=== PATIENT | male | born 1970 | race African-American/Black ===

== ENCOUNTER 2021-02-11 20:40 | Emergency (ER) | payer OTHER ==
[2021-02-11 20:49] VITALS: BP 158/97; PULSE 75; TEMP 98.4; BMI 27.7
[2021-02-11] MEDS ORDERED: ASPIRIN 81 MG CHEWABLE TABLETS ONE (22:34)
[2021-02-12 00:09] LABS: CHLORIDE 102 mmol/L (98-107); SODIUM 137 mmol/L (136-145)
[2021-02-12 00:10] LABS: CALCIUM 8.8 mg/dL (8.5-10.1)
[2021-02-12 00:12] LABS: ALBUMIN 3.5 g/dl (3.4-5.0); ANION GAP 7 MMOL/L (8-16); CO2 29 mmol/L (21-32); GLUCOSE,RANDOM 101 mg/dL (74-106)
[2021-02-12 00:14] LABS: CREATININE 0.9 mg/dL (0.55-1.3); SGOT/AST 18 U/L (15-37); SGPT/ALT 22 U/L (13-61)
[2021-02-12 00:15] LABS: BILIRUBIN,TOTAL 0.4 mg/dL (0.2-1); TOT PROT 7.2 g/dl (6.4-8.2)
[2021-02-12 00:18] LABS: ALK PHOS 83 U/L (45-117)
[2021-02-12 01:05] LABS: HIV INTERPRETATION NEGATIVE (NEGATIVE)
[2021-02-12] MEDS ORDERED: ASPIRIN 81 MG CHEWABLE TABLETS PO ONE ×2 (22:00)
== END 2021-02-12 00:07 | disposition home or self-care (01) ==
LOC: JER 20:40
DX: M25.511 Pain in right shoulder (principal); Z91.19 Patient's noncompliance with other medical treatment and regimen; W01.0XXA Fall on same level from slipping, tripping and stumbling without subsequent striking against object, initial encounter
CPT/HCPCS: 71045-TC-FY; 73030-TC-LT-FY; 73060-TC-LT-FY; 80053; 82550; 84484; 86704; 86706; 86803; 87340; 87389; 87517; 93005; 93010; 99285-25